=== PATIENT | male | born 1950 | race American Indian/Alaskan Native ===

== ENCOUNTER 2024-10-31 14:40 | Emergency (ER) | payer MEDICARE, SELFPAY ==
--- NOTE | 2024-10-31 14:41 | CT_ITS ---
WS: [id number] CT CHEST, ABDOMEN AND PELVIS WITH CONTRAST HISTORY: Trauma TECHNIQUE: Contiguous 5 mm axial imaging performed through the chest, abdomen and pelvis with IV contrast, oral contrast has not been provided. Coronal and sagittal reformats chest. Coronal and sagittal reformats through the abdomen and pelvis. All CT scans at [facility] use at least one of these dose optimization techniques: automated exposure control; mA and/or kV adjustment per patient size (includes targeted exams where dose is matched to clinical indication); or iterative reconstruction. CONTRAST: Omnipaque 350; 100 mL IV. DLP: 1684.85 mGy.cm COMPARISON: None available. Chest CT: Stent graft is noted within the ascending aorta which does extend to the valve plane. No extravasation or aortic injury identified. There is no mediastinal hematoma. Normal great vessels. No dissection of the aorta. Normal size pulmonary artery. Normal size heart. No pericardial or pleural effusions. Lungs are clear. No pulmonary mass or nodule. No pulmonary contusion or laceration. No thoracic spine fracture identified. As visualized the clavicles appear to be intact. No rib fractures. Remote healed RIGHT rib fracture at the ninth rib. Abdomen CT: Liver and spleen are intact. No lacerations are identified. Tiny hepatic cyst LEFT lobe. No intrahepatic hepatobiliary duct dilatation. Prior cholecystectomy. Normal pancreas. Splenic granulomata. No adrenal mass. Kidneys are enhancing normally. No obstruction. Small LEFT renal cyst. Normal size abdominal aorta with mild plaque. Stomach is distended with fluid. No small bowel obstruction. No hematoma or mesenteric injury identified. No colitis. Rectosigmoid anastomosis is intact. No ascites. No hematoma. Pelvic CT: No free fluid in the pelvis. Urinary bladder contains a Puckett catheter and a small amount of air from the Puckett catheter insertion site. No significant soft tissue hematoma or contusion identified. Acute fractures involve the superior endplates of L1 and L2. Slight loss of height involving L1 by 10% with no retropulsion. Very tiny corner fracture anterior superior endplate of L2 with no retropulsion. No spinous process fractures. No sacral fracture. Bilateral femoral head osteonecrosis. CT/CT chest abdpel w/*[id number] IMPRESSION: 1. Acute nondisplaced fractures involving the superior endplates of L1 and L2 without retropulsion. Minimal loss of height of L1 by 10%. 2. No thoracic or abdominal aortic injury. 3. Post repair of the aortic valve with graft extending into the proximal aort a. 4. No mesenteric injury. 5. No pneumothorax or pulmonary contusion. 6. Prior cholecystectomy. 7. No mesenteric injury. 8. No hemoperitoneum or ascites. Notified Carlos Pike DO at 10/31/2024 3:24 PM.
--- NOTE | 2024-10-31 14:41 | CT_ITS ---
WS: [id number] CT HEAD NONCONTRAST HISTORY: trauma TECHNIQUE: Contiguous axial imaging performed through the brain. Bone and soft tissue windows. Sagittal and coronal reformats reviewed. All CT scans at [facility] use at least one of these dose optimization techniques: automated exposure control; mA and/or kV adjustment per patient size (includes targeted exams where dose is matched to clinical indication); or iterative reconstruction. DLP: 1529.17 mGy.cm COMPARISON: None available. No acute intracranial hemorrhage, midline shift or mass effect. Mild cerebral cerebellar atrophy and mild small vessel disease. Ventricles: Normal size with no hydrocephalus. Focus mass of increased attenuation measuring 3.8 mm in the anterior third ventricle is most likely a colloid cyst. No inferior displacement of the cerebellar tonsils. Paranasal sinuses: As visualized are clear. Mastoid air cells: Well pneumatized. Calvarium and scalp: Skull is intact with no soft tissue edema or swelling. CT/CT head wo con* [id number] IMPRESSION: 1. No acute intracranial hemorrhage or edema. 2. Mild cerebral and cerebellar atrophy and small vessel disease. 3. No skull fracture. 4. 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
--- NOTE | 2024-10-31 14:41 | CT_ITS ---
WS: [id number] CT CERVICAL SPINE HISTORY: trauma TECHNIQUE: Contiguous 2.0 mm axial imaging performed through the entire cervical spine. Sagittal and coronal reformats also performed. All CT scans at [facility] use at least one of these dose optimization techniques: automated exposure control; mA and/or kV adjustment per patient size (includes targeted exams where dose is matched to clinical indication); or iterative reconstruction. DLP: 1529.17 mGy.cm COMPARISON: None available. Straightening of the normal cervical spine. Disc spaces are narrowed and desiccated. Hypertrophic osteophytes. No fracture. Facet joints are narrowed but aligned. Odontoid is intact. Bilateral facet joint arthritis. Osteophytic ridging and the vertebral bodies resulting in central and foraminal stenosis. Large osteophyte encroaches upon the RIGHT lateral thecal sac at C5-6. Paraspinal soft tissues are negative. Lung apices are clear. CT/CT cervical spin wo con* [id number] IMPRESSION: 1. No acute cervical spine fracture identified. 2. Advanced degenerative disc disease and hypertrophic osteophyte formation. 3. Large osteophyte on the RIGHT at C5-6 contacts the thecal sac. Multilevel a reas of facet and foraminal and central stenosis.
[2024-10-31 14:42] VITALS: BP 129/82; PULSE 69; RESP 24; TEMP 36.6; O2SAT 95
--- NOTE | 2024-10-31 14:42 | XRR_ITS ---
PROCEDURE INFORMATION: Exam: XR Chest Exam date and time: 10/31/2024 3:08 PM Age: 74 years old Clinical indication: Cough and dyspnea; Additional info: Dyspnea/cough TECHNIQUE: Imaging protocol: Radiologic exam of the chest. Views: 1 view. COMPARISON: CT chest abdpel w/*[id number] 10/31/2024 3:02 PM FINDINGS: Lungs: Unremarkable. No consolidation. Pleural spaces: Unremarkable. No pleural effusion. No pneumothorax. Heart/Mediastinum: Heart size appears enlarged. There is atherosclerosis of the aorta. Bones/joints: Unremarkable. XR/XR chest 1V portable [id number] IMPRESSION: No acute abnormality identified.
[2024-10-31] MEDS: tranexamic acid 1,000 MG/100 ML PREMIX 600 MG IV (14:54)
[2024-10-31 14:58] LABS: Hematocrit 44.2 % (37-53); Hemoglobin 14.40 g/dL (11.27-16.99); Mean Corpuscular HGB Conc 32.6 g/dL (30-55); Mean Corpuscular Hemoglobin 31.0 pg (27-33); Mean Corpuscular Volume 95.1 fl (82-101); Nucleated Red Blood Cells % 0 %; Platelet Count 217 10^3/cmm (157-399); Red Blood Count 4.65 10^6/uL (3.85-5.65); White Blood Count 16.24 10^3/uL (3.29-11.43)
--- NOTE | 2024-10-31 15:08 | PC.NURSE ---
REPORT CALLED TO ETHAN Almaraz RN, TOOK REPORT. ACCEPTING NURSE VERBALIZED UNDERSTANDING AND DENIED FURTHER DETAILS.
[2024-10-31] MEDS: iohexol 350 mg/mL 500 mL Btl (per mL) IV (15:14)
[2024-10-31 15:16] LABS: Alanine Aminotransferase 31 U/L (0-41); Albumin Level 4.0 g/dL (3.5-5.2); Alkaline Phosphatase 81 U/L (40-130); Anion Gap 15.3 (5-19); Aspartate Amino Transferase 34 U/L (0-40); Blood Urea Nitrogen 13 mg/dL (8-23); Calcium 9.3 mg/dL (8.5-10.5); Carbon Dioxide 29 mmol/L (22-29); Chloride 96 mmol/L (98-107); Globulin 3.8 g/dL (1.3-4.6); Glucose 127 mg/dL (65-115); Lipase 39 U/L (13-60); Osmolality Calculated 284 mOsm/kg (285-295); Potassium 4.3 mmol/L (3.5-5.1); Sodium 136 mmol/L (136-145); Total Protein 7.8 g/dL (6.6-8.7)
--- OUTSIDE RECORDS SUMMARY | 2024-10-31 15:16 | XMS_ITS | Clinical Summary ---
[facility] Organization [facility] [address] [facility] Address [address] [facility] [place] [address] Care Team Providers Care Rivet Tosser Name Role Phone Unavailable Primary Care Provider Unavailabl e Allergies No known active allergies Medications citalopram (CeleXA) 40 mg tablet Take 40 mg by mouth daily. Active pantoprazole (PROTONIX) 40 mg Tablet, Delayed Release (E.C.) Take 40 mg by mouth daily. Active levothyroxine 125 mcg tablet Take 125 mcg by mouth daily in the morning. Active nitroglycerin (NITROSTAT) 0.4 mg Tablet, Sublingual Place 0.4 mg under tongue every 5 minutes as needed for Chest Pain. Active atorvastatin (LIPITOR) 40 mg tablet Take 1 Tablet (40 mg) by mouth daily. 60 Tablet 2 4 Active albuterol sulfate HFA 90 mcg/actuation aerosol inhaler Take 2 Puffs by inhalation every 6 hours as needed for Shortness of Breath. Active albuterol (PROVENTIL,TEJ XAVIER) 0.63 mg/3 mL Solution for Nebulization Take 0.63 mg by inhalation every 4 hours as needed for Shortness of Breath. Active aspirin (ECOTRIN EC) 81 mg Tablet, Delayed Release (E.C.) Take 1 Tablet (81 mg) by mouth daily. 60 Tablet 3 4 Active oxygen home delivery Home Oxygen Concentrator no at 0 L/M Rest, 0 L/M Activity, 2 L/M Sleep, Delivery Device: Nasal Cannula Portability: no, 0 L/M Rest, 0 L/M Activity, May provide device best for patient needs(E system,home fill, conserving device) Length of Need: 99 months 1 Each Active HYDROcodone-acet aminophen (NORCO) 7.5-325 mg Tablet Take 1 Tablet by mouth 3 times daily. Active lisinopriL (PRINIVIL) 5 mg tablet Take 10 mg by mouth daily. Active Active Problems Problem Noted Date Diagnosed Date S/P TAVR (transcatheter aortic valve replacement ) 03/27/2024 Assessment & Plan (03/27/2024 2:20 PM STREETCAR CONDUCTOR): Well-seated 26 mm Medtronic evolute valve prosthesis with no peripheral regurgitation and normal prosthetic valve gradients. He has completed his 1 month of dual antiplatelet therapy. Will continue baby aspirin going forward. Will have him follow-up with his primary tier and detonator in 4 to 6 months. Will see him back in the valve clinic in 1 year. History of transcatheter aortic valve replacemen t (TAVR) 02/25/2024 Assessment & Plan (02/25/2024 11:19 AM STREETCAR CONDUCTOR): 02/21/2024. Severe aortic stenosis 01/31/2024 Assessment & Plan (03/27/2024 2:20 PM STREETCAR CONDUCTOR): Patient with severe symptomatic aortic valve stenosis with effort angina that has since resolved following his 26 mm Medtronic evolute valve prosthesis implant. He has no residual symptoms following his TAVR. His clinical classification would appear to be [place] Heart Association class I functional class status. Nonrheumatic aortic valve stenosis 01/23/2024 Assessment & Plan (02/26/2024 4:20 PM STREETCAR CONDUCTOR): Chronic use of Plavix, ASA, amlodipine, atorvastatin, home oxygen nocturnal. Previously scheduled 30-day follow-up with echocardiogram in cardiology clinic. Continue to monitor blood pressure and heart rate daily and log with target BP 100-135/65-80 mmHg, HR 60-90 bpm. Primary hypertension 01/23/2024 Assessment & Plan (03/27/2024 2:20 PM STREETCAR CONDUCTOR): Reasonably well controlled on his current regimen. Diverticulitis 07/05/2020 Tubular adenoma of colon 02/10/2019 Hyperlipidemia Encounters Date Type Department Care Team Description 08/27/2024 External Device Data STL ABSTRACTION Provider, Abstract 07/31/2024 External Device Data STL ABSTRACTION Provider, Abstract from Last 3 Months Family History Medical History Relation Name Comments Zoe Juliann's Disease Father Brain Aneurysm Mother Heart Attack Paternal Grandfather Relation Name Status Comments Father Mother Paternal Grandfather Social History Tobacco Use Types Packs/Day Years Used Date Smoking Tobacco: Former Cigarettes Smokeless Tobacco: Former Tobacco Cessation:Counseling Given: Not Answered Alcohol Use Standard Drinks/Week Comments Not Currently 0 (1 standard drink = 0.6 oz pur e alcohol) Feeling Safe Answer Date Recorded Are you in a relationship wi th someone who hurts you emotionally and/or physically? No 02/21/2024 Food Insecurity Answer Date Recorded Patient needs follow up regardin 07/03/2024 Transportation Needs Answer Date Record ed Patient needs follow up regardin 07/03/2024 Housing Stability Answer Date Recorded Social/Environmental Concerns No concerns Utility Needs Answer Date Recorded Patient needs follow up regardin 07/03/2024 Sex and Gender Information Value Date Recorded Sex Assigned at Not on file Legal Sex Male 11:09 AM CDT Gender Identity Not on file Sexual Orientation Not on file Last Filed Vital Signs Vital Sign Reading Time Taken Comments Blood Pressure 128/88 07/30/2024 9:24 AM CDT Pulse 64 07/30/2024 9:24 AM CDT Temperature 36.6 C (97.9 F) 02/23/2024 12:05 PM STREETCAR CONDUCTOR Respiratory Rate 16 02/23/2024 12:05 PM STREETCAR CONDUCTOR Oxygen Saturation 96% 02/23/2024 12:05 PM STREETCAR CONDUCTOR Inhaled Oxygen Concentration - - Weight 112 kg (247 lb) 07/30/2024 9:24 AM CDT Height 175.3 cm (5' 9 ) 07/30/2024 9:24 AM CDT Body Mass Index 36.48 07/30/2024 9:24 AM CDT Plan of Treatment Upcoming Encounters Date Type Department Care Team (Late st Contact Info) Description 11/04/2024 8:30 AM CDT Office Visit [facility] Pulmonology [address] [phone] Oralia Toussaint MD [address] [place] [phone] 03/26/2025 12:30 [address]CAR CONDUCTOR Appointment [facility] Cardiovascular [facility] [place] [address] [place] [address] [place] [address] 03/26/2025 1:30 PM [address]CAR CONDUCTOR Office Visit [facility] Heart and Vascular [place] [address] [facility] [phone] 07/29/2025 10:30 AM CDT Office Visit [facility] Heart and Vascular [place] [address] [place] [address] Allie Pollard MD [address] [facility] [place] [address] Health Maintenance Due Date Last Done Comments DTAP/TDAP/TD VACCINES (1 - Tdap) 10/29/1998 10/28/18 99 Abdominal Aortic Aneurysm (A AA) Screening 10/27/2016 ZOSTER VACCINE (2 of 2) 04/06/2021 02/09/2021 COVID-19 Vaccine (2023-2 5 season) 2024 12/22/2023, 01/02/2023, 07/20/2022, Additional history exists INFLUENZA VACCINE (#1) 2024 , 02/17/2022, 11/26/2017 RSV VACCINE (60+ or ) (1 - 1-dose 75+ series) 10/27/2026 PNEUMOCOCCAL VACCINE 50+ YEARS Completed 01/05/2018 , 01/05/2017 Medical Devices Implanted Type Area Edger Saw Operator Device Identifier Shelf Expiration Date Model / Serial / Lot Closure Perclose Prostyle Sut Mediate [id number] - [id number] Implanted:Qty : 1 on 02/21/2024 by Maylin Weber MD at [facility] Closure Device Right: Groin ADKINS- VASC DEVICE [id number] 11/09/2025 08010-87 / / Closure Perclose Prostyle Sut Mediate [id number] - [id number] Implanted:Qty : 1 on 02/21/2024 by Maylin Weber MD at [facility] Closure Device Right: Groin ADKINS- VASC DEVICE [id number] 11/09/2025 85998-27 / / Plate Plate Neck Vlv Aort Evolut Fx Tavr 29mm Evolutfx-29 - [id number] Implanted:Qty : 1 on 02/21/2024 by Maylin Weber MD at [facility] Valve N/A: Heart MEDTRONIC- HEART VALVE 07/22/2025 EVOLUTFX- 29 / [id number] / Insurance MEDICARE PART A AND B Advance Directives For more information, please contact: [phone] * Full Code (Latest Code Status on File) Date Activated Date Inactivated Comments 02/22/2024 12:13 AM 02/23/2024 4:11 PM * Full Code Date Activated Date Inactivated Comments 02/21/2024 5:43 PM 02/22/2024 12:13 AM * Full Code Date Activated Date Inactivated Comments 02/21/2024 9:51 AM 02/21/2024 5:43 PM * Full Code Date Activated Date Inactivated Comments 01/18/2024 2:52 PM 02/11/2024 5:36 PM * Full Code Date Activated Date Inactivated Comments 01/18/2024 10:01 AM 01/18/2024 2:52 PM
--- OUTSIDE RECORDS SUMMARY | 2024-10-31 15:16 | XMS_ITS | Clinical Summary ---
Author Organization [facility] Address [address] [place] [address] Care Team Providers Care Cyber Security Name Role Phone Jean Paul Alegria MD Primary Care Provider [phone] Allergies No known active allergies Medications No known medications Active Problems Problem Noted Date Diagnosed Date Diverticulitis 07/05/2020 Assessment & Plan (02/09/2022 1:24 PM CIVIL DEFENSE DIRECTOR): Slowly resume normal activities over the next week. Follow up as needed. Assessment & Plan (01/30/2022 8:37 PM CIVIL DEFENSE DIRECTOR): Go to the hospital for admission, IV antibiotics, labs, CT abdomen and pelvis. Assessment & Plan (08/20/2020 9:33 AM CDT): Schedule Laparoscopic Sigmoid Colon Resection The indications, alternatives, risks and potential complications, including, but not limited to: bleeding, infection, damage to any of the surrounding organs, including the ureter, hematoma, seroma, abscess, anastomotic failure, adhesions, scarring, re-occurrence, possible need for further therapy, and the risks of anesthesia, were discussed with the patient and they understand and wish to proceed. Assessment & Plan (08/12/2020 2:38 PM CDT): Will call when he is ready to proceed with Elective Sigmoid Colon Resection. Follow up as needed. Assessment & Plan (07/05/2020 4:07 PM CDT): Will finish antibiotics. Schedule Colonoscopy then will consider elective resection The indications, alternatives, risks and potential complications, including, but not limited to: bleeding, infection, perforation, and the risks of anesthesia, were discussed with the patient and they understand and wish to proceed. Tubular adenoma of colon 02/10/2019 Assessment & Plan (02/10/2019 4:03 PM CIVIL DEFENSE DIRECTOR): Based on current recommended guidelines repeat colonoscopy in 5 years. Incontinence of feces with fecal urgency 019 Assessment & Plan (02/10/2019 4:02 PM CIVIL DEFENSE DIRECTOR): Patient reports the symptoms have completely resolved with the Bentyl. Assessment & Plan (01/13/2019 1:51 PM CIVIL DEFENSE DIRECTOR): Will obtain stool studies and colonoscopy. The indications, alternatives, risks and potential complications, including, but not limited to: bleeding, infection, perforation, and the risks of anesthesia, were discussed with the patient and they understand and wish to proceed. Social History Tobacco Use Types Packs/Day Years Used Date Smoking Tobacco: Never Smokeless Tobacco: Never Alcohol Use Standard Drinks/Week Comments Defer 0 (1 standard drink = 0.6 oz pur e alcohol) Sex and Gender Information Value Date Recorded Sex Assigned at Not on file Legal Sex Male 6:48 PM CDT Gender Identity Not on file Sexual Orientation Not on file Last Filed Vital Signs Vital Sign Reading Time Taken Comments Blood Pressure 134/78 02/09/2022 10:36 AM CIVIL DEFENSE DIRECTOR Pulse 70 08/12/2020 9:33 AM CDT Temperature - - Respiratory Rate 16 08/12/2020 9:33 AM CDT Oxygen Saturation - - Inhaled Oxygen Concentration - - Weight - - Height - - Body Mass Index - - Plan of Treatment Health Maintenance Due Date Last Done Comments Medicare Annual Wellness 1950 Shingrix (ZOSTER RECOMBINANT) (1 of 2) 10/27/2001 Td, Tdap Vaccines Adult 2008 1998 COVID-19 Vaccine (2023- season) 2023 12/15/2021, 09/22/2021, 02/09/2021, Additional history exists Influenza Vaccination (#1) 2024 11/26/2017 RSV 60+ (1 - 1-dose 75+ series) 10/27/2026 Colonoscopy 07/22/2030 07/22/2020 Pneumococcal Vaccine: 50+ Years Completed 01/05/2018, 01/05/2017 HIB Vaccines Aged Out No longer eligi ble based on patient's age to complete this topic HPV Vaccines Aged Out No longer eligi ble based on patient's age to complete this topic Hepatitis A Vaccines Aged Out No long er eligible based on patient's age to complete this topic Hepatitis B Vaccines Aged Out No long er eligible based on patient's age to complete this topic IPV Vaccines Aged Out No longer eligi ble based on patient's age to complete this topic Meningococcal Vaccines Aged Out No lo nger eligible based on patient's age to complete this topic RSV Mab Nirsevimab (Beyfortus) <20 months Aged Out No longer eligibl e based on patient's age to complete this topic Rotavirus Vaccines Aged Out No longer eligible based on patient's age to complete this topic Insurance MEDICARE Care Teams Cyber Security Relationship Specialty Start Date End Date Jean Paul Alegria MD [address] [place] [id number] PCP - General Internal Medicine 01/13/19
--- OUTSIDE RECORDS SUMMARY | 2024-10-31 15:16 | XMS_ITS | Patient Health Record ---
Author Organization [facility] Address [address] [place] [address] Care Team Providers Care Box Nailer Name Role Phone mirtha stratton Primary Care Provider UnavailJace Nice Unavailable [phone] Nash Adame Unavailable [phone] Allergies No Known Allergies Results Component Value Reference Range Notes Flu/Covid Reviewed date:02/02/2024 12:22:23 PM Interpretation:Negative Performing Lab: Notes/Report: Negative Chest X-ray PA and lateral Reviewed date:02/02/2024 12:12:00 PM Interpretation: Performing Lab: Notes/Report: Reason For Referral No Information Medications Medication SIG (Take, Route, Frequency, Duration) Notes Start Date End Date Status Protonix 40 MG 1 tablet 1/2 to 1 ho ur before morning meal Orally Once a day Active Nitroglycerin 0.4 MG 1 tablet under the tongue and allow to dissolve as needed. Take every 5 minutes up to 3 times if chest pain persists Sublingual Three times a day Active Ondansetron 4 MG 1 tablet on the tong ue and allow to dissolve Orally Once a day Active Mucinex 600 MG 1 tablet as needed Orally every 12 hrs Active HYDROcodone-Acetaminophen 7.5-325 MG 1 tablet as needed Orally every 6 hrs Active Lisinopril 5 MG 2 tablets Orally Onc e a day Active amLODIPine Besylate 5 MG 1 tablet Orally Once a day Active Levothyroxine Sodium 125 MCG 1 tablet in the morning on an empty stomach Orally Once a day Active Ipratropium-Albuterol 0.5-2.5 (3) MG/3ML 3 mL Inhalation every 6 hrs as needed 02/02/2024 Active Atorvastatin Calcium 20 MG 1 tablet Oral ly Once a day Active Vital Signs Heart Rate 69 /min 02/02/2024 Temperature 98.8 degrees Fahrenheit 02/02/2024 Respiratory Rate 24 /min 02/02/2024 Height-cm 177.8 cm 02/02/2024 Oximetry 96 % 02/02/2024 Blood pressure diastolic 55 mm Hg 02/02/2024 Weight-kg 101.6 kg 02/02/2024 Height 70 in 02/02/2024 Blood pressure systolic 103 mm Hg 02/02/2024 Weight 224 lbs 02/02/2024 BMI 32.14 kg/m2 02/02/2024 Encounters Encounter Location Date Provider Diagnosis [facility] [address] [place] [address] 02/02/2024 Nash Adame Bronchitis J40 Assessments Encounter Date Diagnosis (ICD Code) Assessment Notes Treatment Notes Treatment Clinical Notes Section Notes 02/02/2024 Bronchitis (ICD-10 - J40) 02/02/2024 Other I will obtain lab testing and urgent care today for influenza and COVID-19. I will also obtain PA and lateral chest x-ray for further evaluation of the patient's cough with yellow/green sputum. Lab: Lab testing is negative for influenza and COVID-19. I discussed these lab test results with the patient. Chest x-ray - PA and lateral chest x-ray performed and reviewed in the urgent care today. Cardiac silhouette appears normal in size. Costophrenic angles appear sharp bilaterally. No obvious acute infiltrate or consolidation to suggest pneumonia. No pneumothorax, no obvious pleural effusion. I will prescribe a course of azithromycin, prednisone, and DuoNebs to treat bronchitis. Plan Of Treatment No Information Insurance Providers Payer Name Payer Address Payer Phone Subscriber Number Group Number Insured Name Patient Relationship to Insured Coverage Start Date Coverage End Date [employer] [place] [address] [address] [place] [address] [id number] Mildred Larsen Self - patient is the insured Medical (General) History Medical History History ICD Code Tubular adenoma of colon Tubular adenoma of colon D12.6 Diverticulitis K57.92 Nonrheumatic aortic valve stenosis I35.0 Primary hypertension I10 Severe aortic stenosis I35.0 Incontinence of feces with fecal urgency R15.9 Surgical History Surgery Date(Month/Year) cervical zipper, cholecystectomy arthroscopic left knee w meniscus repair
--- OUTSIDE RECORDS SUMMARY | 2024-10-31 15:16 | XMS_ITS | Encounter Summary ---
Author Organization [facility] Address [address] [place] [address] Care Team Providers Care Collector Of Internal Revenue Name Role Phone Jean Paul Alegria MD Primary Care Provider [phone] Encounter Details Date Type Department Care Team (Late st Contact Info) Description 08/23/2020 Orders Only [facility] [place] [address] [facility] [address] [place] [id number] Kevin Schwartz, [address] [facility] [address] [place] [address] Social History Tobacco Use Types Packs/Day Years Used Date Smoking Tobacco: Never Smokeless Tobacco: Never Alcohol Use Standard Drinks/Week Comments Defer 0 (1 standard drink = 0.6 oz pur e alcohol) Sex and Gender Information Value Date Recorded Sex Assigned at Not on file Legal Sex Male 6:48 PM CDT Gender Identity Not on file Sexual Orientation Not on file COVID-19 Exposure Response Date Recorded In the last month, have you been in contact with someone who was confirmed or suspected to have Coronavirus / COVID-19? No / Unsure 08/20/2020 8:37 AM CDT documented as of this encounter Plan of Treatment Not on file documented as of this encounter Visit Diagnoses Not on filedocumented in this encounter Additional Health Concerns Health Status Noted Date Alive and well 08/12/2020 Assessment Noted Time A fall risk assessment has been complete d for the patient 08/20/2020 9:25 AM CDT documented as of this encounter Care Teams Collector Of Internal Revenue Relationship Specialty Start Date End Date Jean Paul Alegria MD [address] [place] [id number] PCP - General Internal Medicine 01/13/19 documented as of this encounter
[2024-10-31] MEDS: ondansetron 2 mg/ML SDV 2 mL 4 MG IVP (15:21)
[2024-10-31] MEDS: methylPREDNISolone sod succ 125 mg/2 mL INJ IVP (15:23)
[2024-10-31] MEDS: diphenhydrAMINE 50 mg/mL SDV 1mL 25 MG IVP (15:23)
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
[2024-10-31 15:33] VITALS: BP 129/82; PULSE 64; RESP 22; O2SAT 97
[2024-10-31 15:37] LABS: Glucose Urine UA Negative (Normal); Nitrate Urine Negative (Negative); Specific Gravity, Urine 1.008 (1.005-1.030)
[2024-10-31 15:42] LABS: Add Urine Microscopic? YES
== END 2024-10-31 15:34 | disposition short-term general hospital (02) ==
PROVIDERS: Emergency Provider Family Medicine
DX: S32.010A Wedge compression fracture of first lumbar vertebra, initial encounter for closed fracture (principal); V89.2XXA Person injured in unspecified motor-vehicle accident, traffic, initial encounter; R10.9 Unspecified abdominal pain
CPT/HCPCS: 51702; 70450; 71045; 71260; 72125; 74177; 80053; 81001; 83690; 85025; 86850; 86900; 96365; 96375; 99285; 99291; J1200; J2405; J2919; J9999